=== PATIENT | female | born 1965 | race Caucasian/White ===

== ENCOUNTER 2023-07-17 23:13 | Inpatient (IN) | payer OTHER ==
[2023-07-17 23:26] VITALS: BMI 33.2
[2023-07-18] MEDS ORDERED: PIPERACILLIN/TAZOBACTAM 4.5 GM VIAL IVPB ONE (00:58)
[2023-07-18 01:00] LABS: HEMATOCRIT 40.9 % (32.4-45.2); HEMOGLOBIN 13.5 GM/dL (10.7-15.3); MCH 26.9 pg (25.7-33.7); MCHC 33.1 g/dl (32.0-36.0); MEAN CELL VOLUME 81.3 fl (80-96); MEAN PLT VOLUME 8.2 fl (7.5-11.1); PLATELET COUNT 325 10^3/uL (134-434); RBC 5.04 M/mm3 (3.60-5.2); RDW 26.2 % (11.6-15.6); WHITE BLOOD COUNT 8.5 K/mm3 (4.0-10.0)
[2023-07-18] MEDS: PIPERACILLIN/TAZOB 4.5 GM 4.5 GM in DEXTROSE 5%-WATER 100 ML IVPB ONE (01:06)
[2023-07-18 01:15] LABS: CALCIUM 9.5 mg/dL (8.5-10.1)
[2023-07-18 01:16] LABS: ALBUMIN 3.8 g/dl (3.4-5.0); BLOOD UREA NITROGEN 13.2 mg/dL (7-18)
[2023-07-18 01:19] LABS: CREATININE 0.9 mg/dL (0.55-1.3)
[2023-07-18 01:20] LABS: BILIRUBIN,TOTAL 0.3 mg/dL (0.2-1)
[2023-07-18 01:21] LABS: TOT PROT 7.7 g/dl (6.4-8.2)
[2023-07-18] MEDS: INSULIN ASPART SLIDING SCALE (NOVOLOG) 1 VIAL SQ SCH (07:02)
[2023-07-18] MEDS: PIPERACILLIN/TAZOB 4.5 GM 4.5 GM in DEXTROSE 5%-WATER 100 ML IVPB SCH ×2 (08:47→12:10)
[2023-07-18] MEDS ORDERED: ALBUTEROL SO4 HFA INHALER IH PRN (12:33)
[2023-07-18] MEDS: POLYETHYLENE GLYCOL (HEALTHYLAX) 3350 17 GM PACKET PO SCH (14:02)
[2023-07-18] MEDS: PANTOPRAZOLE 40 MG TABLET PO SCH (14:02)
[2023-07-18] MEDS: AMPICILLIN NA/SULBACTAM NA 3 GM in DEXTROSE 5%-WATER 100 ML IVPB SCH (14:03)
[2023-07-18] MEDS: DOXYCYCLINE HYCLATE 100 MG CAPSULE PO SCH (14:04)
[2023-07-18] MEDS ORDERED: AMPICILLIN NA/SULBACTAM NA 3 GM in DEXTROSE 5%-WATER 100 ML IVPB SCH (15:00)
[2023-07-18] MEDS: ACETAMINOPHEN 325 MG TABLET (FP) PO PRN (15:33)
[2023-07-18] MEDS: ATORVASTATIN CA 40 MG TABLET (FP) PO SCH (21:47)
[2023-07-18] MEDS: APIXABAN 2.5 MG TABLET PO SCH (21:47)
[2023-07-18] MEDS: BACITRACIN ZINC 15 GM TUBE TOPICAL OINTMENT TP ONE (21:52)
[2023-07-18] MEDS ORDERED: APIXABAN 5 MG TABLET PO SCH (22:00)
[2023-07-18] MEDS: diphenhydrAMINE HCL 25 MG CAPSULE (FP) PO ONE (22:43)
[2023-07-19] MEDS: BACITRACIN ZINC 15 GM TUBE TOPICAL OINTMENT TP SCH (11:37)
[2023-07-19 12:12] LABS: HEMATOCRIT 42.4 % (32.4-45.2); HEMOGLOBIN 13.9 G/dL (10.7-15.3); MCH 27.2 pg (25.7-33.7); MCHC 32.8 g/dl (32.0-36.0); MEAN CELL VOLUME 82.9 fl (80-96); PLATELET COUNT 274.9 10^3/uL (134-434); RBC 5.11 10^6/uL (3.60-5.2); RDW 25.4 % (11.6-15.6); WHITE BLOOD COUNT 6.4 10^3/uL (4.0-10.8)
[2023-07-19 12:45] LABS: CALCIUM 9.9 mg/dl (8.5-10.1); CREATININE 0.9 mg/dl (0.6-1.3); POTASSIUM 4.8 mmol/L (3.5-5.1)
[2023-07-20 04:44] VITALS: RESP 18
[2023-07-20 06:46] VITALS: BP 96/71; PULSE 76; TEMP 98.1
== END 2023-07-20 13:44 | disposition home or self-care (01) | DRG 383 ==
LOC: FER 23:13 → FM/S 07-18 03:18
PROVIDERS: ADMIT Internal Medicine; ATTEND Internal Medicine
DX: L03.116 Cellulitis of left lower limb (principal); E11.9 Type 2 diabetes mellitus without complications; K21.9 Gastro-esophageal reflux disease without esophagitis; J45.909 Unspecified asthma, uncomplicated; E78.5 Hyperlipidemia, unspecified; M54.50 Low back pain, unspecified; C85.80 Other specified types of non-Hodgkin lymphoma, unspecified site; E66.9 Obesity, unspecified; Z68.33 Body mass index [BMI] 33.0-33.9, adult; Z86.718 Personal history of other venous thrombosis and embolism; Z86.711 Personal history of pulmonary embolism
CPT/HCPCS: 36415; 71045-TC-FY; 80048; 80053; 82962; 83036; 85027; 85651; 87040; 93005; 99285-25

== ENCOUNTER 2023-08-04 02:13 | Emergency (ER) | payer OTHER ==
[2023-08-04 02:26] VITALS: BP 112/77; PULSE 85; RESP 16; TEMP 98.4; BMI 31.3
[2023-08-04] MEDS ORDERED: FLUCONAZOLE 150 MG TABLET PO ONE (02:46)
[2023-08-04] MEDS: FLUCONAZOLE 150 MG TABLET PO ONE (02:47)
== END 2023-08-04 02:50 | disposition home or self-care (01) ==
LOC: FER 02:13
DX: B37.31 Acute candidiasis of vulva and vagina (principal)
CPT/HCPCS: 99283-25

== ENCOUNTER 2023-08-23 19:22 | Emergency (ER) | payer OTHER ==
[2023-08-23 19:39] VITALS: BP 130/84; PULSE 91; RESP 18; TEMP 97.7; BMI 31.3
[2023-08-23 20:52] LABS: HEMOGLOBIN 14.3 G/dL (10.7-15.3); MCH 28.7 pg (25.7-33.7); MCHC 33.2 g/dl (32.0-36.0); MEAN CELL VOLUME 86.5 fl (80-96); MEAN PLT VOLUME 9.6 fl (7.5-11.1); PLATELET COUNT 343.9 10^3/uL (134-434); RBC 4.97 10^6/uL (3.60-5.2); RDW 16.7 % (11.6-15.6); WHITE BLOOD COUNT 9.6 10^3/uL (4.0-10.8)
[2023-08-23] MEDS ORDERED: ACETAMINOPHEN INJECTION 100 ML IVPB ONE (20:52)
[2023-08-23] MEDS: SODIUM CHLORIDE 1,000 ML IV ONE (20:53)
[2023-08-23] MEDS: ACETAMINOPHEN 1000 MG/100 ML BAG IVPB ONE (20:53)
[2023-08-23 21:01] LABS: *STOOL FOR OCCULT BLOOD POSITIVE (NEGATIVE); INR 1.05 (0.83-1.09); PROTHROMBIN TIME (PATIENT) 12.2 SEC (9.7-13.0)
[2023-08-23 21:11] LABS: ALBUMIN 4.7 g/dl (3.4-5.0); BILIRUBIN,TOTAL 0.3 mg/dl (0.2-1); CALCIUM 9.7 mg/dl (8.5-10.1); MAGNESIUM 1.9 mg/dL (1.8-2.4); PHOSPHOROUS 3.7 (2.5-4.9); TOT PROT 7.5 g/dl (6.4-8.2)
== END 2023-08-23 22:56 | disposition home or self-care (01) ==
LOC: FER 19:22
PROC: 3E030NZ Introduction of Analgesics, Hypnotics, Sedatives into Peripheral Vein, Open Approach (ICD-10-PCS; principal; 2023-08-23)
PROC: 3E0337Z Introduction of Electrolytic and Water Balance Substance into Peripheral Vein, Percutaneous Approach (ICD-10-PCS; 2023-08-23)
DX: R10.30 Lower abdominal pain, unspecified (principal); K62.5 Hemorrhage of anus and rectum; R11.0 Nausea
CPT/HCPCS: 36415; 74177-TC; 80053; 81003; 81015; 82272; 83690; 83735; 84100; 85027; 85610; 93005; 99285-25; J0131; Q9967

== ENCOUNTER 2023-11-11 20:25 | Emergency (ER) | payer OTHER ==
[2023-11-11 20:36] VITALS: BP 148/93; PULSE 82; RESP 18; TEMP 98.2; BMI 31.3
== END 2023-11-11 21:03 | disposition home or self-care (01) ==
LOC: FER 20:25
DX: R05.9 Cough, unspecified (principal); R09.81 Nasal congestion; J06.9 Acute upper respiratory infection, unspecified; B96.89 Other specified bacterial agents as the cause of diseases classified elsewhere; Z20.822 Contact with and (suspected) exposure to COVID-19
CPT/HCPCS: 0241U-QW; 99283-25

== ENCOUNTER 2023-11-21 11:28 | Emergency (ER) | payer OTHER ==
[2023-11-21 11:40] VITALS: BMI 31.3
[2023-11-21] MEDS ORDERED: ACETAMINOPHEN INJECTION 100 ML IVPB ONE (12:50)
[2023-11-21 12:53] LABS: BASO % 0.1 % (0-2.0); EOS % 1.5 % (0-4.5); HEMOGLOBIN 14.3 GM/dL (10.7-15.3); LYMPH % 15.9 % (8-40); MCH 29.7 pg (25.7-33.7); MEAN CELL VOLUME 87.2 fl (80-96); MEAN PLT VOLUME 8.4 fl (7.5-11.1); MONO % 7.7 % (3.8-10.2); NEUT % 74.8 % (42.8-82.8); PLATELET COUNT 368 10^3/uL (134-434); RBC 4.82 M/mm3 (3.60-5.2); RDW 15.2 % (11.6-15.6); WHITE BLOOD COUNT 15.2 K/mm3 (4.0-10.0)
[2023-11-21] MEDS: ACETAMINOPHEN 1000 MG/100 ML BAG IVPB ONE (12:55)
[2023-11-21 13:10] LABS: POTASSIUM 4.2 mmol/L (3.5-5.1)
[2023-11-21 13:11] LABS: ALBUMIN 3.7 g/dl (3.4-5.0); CALCIUM 9.1 mg/dL (8.5-10.1)
[2023-11-21 13:13] LABS: BLOOD UREA NITROGEN 17.7 mg/dL (7-18)
[2023-11-21 13:15] LABS: CREATININE 0.9 mg/dL (0.55-1.3)
[2023-11-21 13:17] LABS: BILIRUBIN,TOTAL 0.3 mg/dL (0.2-1); TOT PROT 7.9 g/dl (6.4-8.2)
[2023-11-21 13:20] LABS: N-TERMINAL BNP 69.5 pg/ml (5-125)
[2023-11-21] MEDS ORDERED: methylPREDNISolone NA SUCC 125 MG/2 ML VIAL ONE (13:33)
[2023-11-21] MEDS ORDERED: AZITHROMYCIN IVPB 500 MG/250 ML BAG IVPB ONE (13:34)
[2023-11-21] MEDS: methylPREDNISolone NA SUCC 125 MG/2 ML VIAL IVPB ONE (13:46)
[2023-11-21] MEDS: ALBUTEROL SO4 2.5/IPRATROPIUM 0.5 INH SOL 3 ML VIAL.NEB. NEB SCH (13:46)
[2023-11-21] MEDS: AZITHROMYCIN IVPB 500 MG in DEXTROSE 5%-WATER - 250 ML IVPB ONE (13:56)
[2023-11-21 15:03] VITALS: TEMP 98.3
[2023-11-21] MEDS ORDERED: ALBUTEROL SO4 2.5/IPRATROPIUM 0.5 INH SOL 3 ML VIAL.NEB. NEB ONE (15:59)
[2023-11-21] MEDS: ALBUTEROL SO4 2.5/IPRATROPIUM 0.5 INH SOL 3 ML VIAL.NEB. NEB ONE (16:00)
[2023-11-21 16:42] VITALS: BP 140/69; PULSE 100; RESP 20
== END 2023-11-21 16:42 | disposition home or self-care (01) ==
LOC: JER 11:28
PROC: 3E03329 Introduction of Other Anti-infective into Peripheral Vein, Percutaneous Approach (ICD-10-PCS; principal; 2023-11-21)
PROC: 3E033NZ Introduction of Analgesics, Hypnotics, Sedatives into Peripheral Vein, Percutaneous Approach (ICD-10-PCS; 2023-11-21)
PROC: 3E033GC Introduction of Other Therapeutic Substance into Peripheral Vein, Percutaneous Approach (ICD-10-PCS; 2023-11-21)
PROC: 3E0F7GC Introduction of Other Therapeutic Substance into Respiratory Tract, Via Natural or Artificial Opening (ICD-10-PCS; 2023-11-21)
PROC: 3E0F7GC Introduction of Other Therapeutic Substance into Respiratory Tract, Via Natural or Artificial Opening (ICD-10-PCS; 2023-11-21)
DX: J45.21 Mild intermittent asthma with (acute) exacerbation (principal); R05.9 Cough, unspecified; R06.02 Shortness of breath; R07.9 Chest pain, unspecified; R04.2 Hemoptysis; M79.605 Pain in left leg; Z20.822 Contact with and (suspected) exposure to COVID-19
CPT/HCPCS: 0241U-QW; 36415; 71045-TC-FY; 80053; 83880; 84484; 85025; 85379; 93005; 93010; 99285-25; J0131

== ENCOUNTER 2024-06-07 00:53 | Emergency (ER) | payer OTHER ==
[2024-06-07 00:59] VITALS: TEMP 98.6; BMI 32.8
[2024-06-07 02:30] LABS: BASO % 0.5 % (0-2.0); EOS % 5.6 % (0-4.5); HEMATOCRIT 41.7 % (32.4-45.2); HEMOGLOBIN 13.9 GM/dL (10.7-15.3); LYMPH % 28.6 % (8-40); MCH 29.4 pg (25.7-33.7); MCHC 33.3 g/dl (32.0-36.0); MEAN CELL VOLUME 88.5 fl (80-96); MEAN PLT VOLUME 8.4 fl (7.5-11.1); MONO % 10.9 % (3.8-10.2); NEUT % 54.4 % (42.8-82.8); PLATELET COUNT 289 10^3/uL (134-434); RBC 4.71 M/mm3 (3.60-5.2); RDW 14.5 % (11.6-15.6); WHITE BLOOD COUNT 9.4 K/mm3 (4.0-10.0)
[2024-06-07 02:33] VITALS: RESP 18
[2024-06-07 02:46] LABS: INR 1.23 (0.83-1.09); PROTHROMBIN TIME (PATIENT) 13.8 SEC (9.7-13.0)
[2024-06-07 02:49] LABS: ACTIVATED PTT 36.4 SECONDS (25.2-36.5)
[2024-06-07] MEDS: ALBUTEROL SO4 2.5/IPRATROPIUM 0.5 INH SOL 3 ML VIAL.NEB. NEB ONE (02:51)
[2024-06-07 02:57] LABS: POTASSIUM 4.1 mmol/L (3.5-5.1)
[2024-06-07 02:58] LABS: CALCIUM 9.4 mg/dL (8.5-10.1)
[2024-06-07 02:59] LABS: ALBUMIN 3.7 g/dl (3.4-5.0); BLOOD UREA NITROGEN 12.4 mg/dL (7-18); MAGNESIUM 1.8 mg/dL (1.8-2.4)
[2024-06-07 03:04] LABS: BILIRUBIN,TOTAL 0.3 mg/dL (0.2-1); TOT PROT 7.8 g/dl (6.4-8.2)
[2024-06-07] MEDS ORDERED: ACETAMINOPHEN INJECTION 100 ML ONE (05:03)
[2024-06-07] MEDS: ACETAMINOPHEN 1000 MG/100 ML BAG IVPB ONE (05:10)
== END 2024-06-07 05:59 | disposition home or self-care (01) ==
LOC: JER 00:53
PROC: 3E033NZ Introduction of Analgesics, Hypnotics, Sedatives into Peripheral Vein, Percutaneous Approach (ICD-10-PCS; principal; 2024-06-07)
PROC: 3E0F7GC Introduction of Other Therapeutic Substance into Respiratory Tract, Via Natural or Artificial Opening (ICD-10-PCS; 2024-06-07)
DX: R06.02 Shortness of breath (principal); R07.89 Other chest pain; M79.662 Pain in left lower leg; Z20.822 Contact with and (suspected) exposure to COVID-19
CPT/HCPCS: 0241U-QW; 36415; 71046-TC-FY; 71275-TC; 80053; 83735; 84484; 85025; 85610; 85730; 93005; 93010; 99285-25; J0131

== ENCOUNTER 2024-12-24 19:56 | Emergency (ER) | payer OTHER ==
[2024-12-24 20:13] VITALS: BP 115/79; PULSE 82; RESP 20; TEMP 98.2; BMI 30.5
[2024-12-24] MEDS ORDERED: KETOROLAC TROMETHAMINE 60 MG/2 ML VIAL ONE (20:26)
[2024-12-24] MEDS ORDERED: DEXAMETHASONE 4 MG TABLET (FP) ONE (20:26)
[2024-12-24] MEDS ORDERED: LIDOCAINE 5% TOPICAL PATCH ONE (20:27)
[2024-12-24] MEDS: DEXAMETHASONE 4 MG TABLET (FP) PO ONE (20:30)
[2024-12-24] MEDS: LIDOCAINE 5% TOPICAL PATCH TP ONE (20:30)
[2024-12-24] MEDS: KETOROLAC TROMETHAMINE 60 MG/2 ML VIAL IM ONE (20:35)
[2024-12-24] MEDS ORDERED: LIDOCAINE PATCH REMOVAL MC SCH (22:00)
== END 2024-12-24 21:50 | disposition home or self-care (01) ==
LOC: FER 19:56
PROC: 3E0233Z Introduction of Anti-inflammatory into Muscle, Percutaneous Approach (ICD-10-PCS; principal; 2024-12-24)
DX: S83.91XA Sprain of unspecified site of right knee, initial encounter (principal); M17.11 Unilateral primary osteoarthritis, right knee; X50.1XXA Overexertion from prolonged static or awkward postures, initial encounter; Y93.02 Activity, running
CPT/HCPCS: 73560-TC-RT-FY; 99284-25